=== PATIENT | male | born 1995 ===

== ENCOUNTER 2024-11-08 17:54 | Inpatient (IN) | payer MEDICAID, SELFPAY ==
[2024-11-08 18:24] VITALS: BMI 22.6
[2024-11-08 18:25] VITALS: BP 124/72; PULSE 76; RESP 18; TEMP 36.7; O2SAT 98
--- NOTE | 2024-11-08 18:26 | PC.NURSE ---
Pt was brought onto the unit via ems at 1804. Pt cooperative with skin check, skin intact. Pts VSS. Pt oriented to the unit. Pt requested and allowed to use the shower. Pt is safe and denies any SI/HI. Pt is calm and cooperative.
[2024-11-08 20:00] VITALS: BP 120/59; PULSE 78; RESP 18; TEMP 36.9; O2SAT 95
--- NOTE | 2024-11-08 23:23 | PC.ADMIT ---
Cristian is a 29 y/o Barbadian speaking male admitted at 18:04 from [facility] for the tx of major depression. Patient met with provider Shira upon arrival to unit and signed a CV. Pt is A&O X4. Cristian initially presented to [facility] with chest discomfort, feeling lightheaded, and a headache. He also endorsed SI due to recent stressors. Pt lives alone in an apartment and works at [employer] for the past 6 years. 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 He reported that a few days ago he had to go to court and that it didn't go well. He was served a restraining order for a year, and was banned from going to the fire station in [facility]. He reported that he felt overwhelmed as he had just accomplished his dream job and he had so much anxiety that he began having chest pain stating he would jump out of a window. Patient reports a history of an enlarged heart and does not take any at home medications. While at [facility] he had a complete cardiac work up with findings WNL. He reports smoking a few cigarettes a day and denies use of alcohol or any other substances. Utox +THC. Pt was calm and cooperative. His mood is anxious and depressed with a flat affect. Pt remained with positive eye contact and answered all assessment questions calmly and appropriately. He is accepting of this admission and hopes to get better and learn more how to take care of himself to better himself. Pt denies any current SI, HI, AVH, pain or discomfort. Skin check was unremarkable. Pt placed on 15 minute safety checks.
[2024-11-09 07:00] VITALS: BMI 13.9
[2024-11-09 07:46] VITALS: BP 127/58; PULSE 95; RESP 20; TEMP 36.4; O2SAT 97
--- NOTE | 2024-11-09 08:32 | HO.PM.IMCN ---
History of Present Illness Data of Consult Service Date: 11/09/24 Primary Care Provider: None Physician HPI Reason for consult: Medical H&P 29-year-old male presented to [facility] chest discomfort and he endorsed suicidal ideation in the setting of recent stressors. He stated that he plans to jump out of a window. Regarding the chest pain, his EKG demonstrated normal sinus rhythm with no evidence of STEMI, his troponins were negative, BNP less than 2, CBC and CMP were unremarkable, his urine tox screen demonstrated THC, his chest x-ray was negative. ACS was ruled out. On exam he has no concerns, denies any shortness of breath, dizziness lightheadedness or any other concerning symptoms. He has no medical concerns. He reports that at age 15 he had a physical prior to playing tennis, was told he had a ?enlarged heart?. He has never seen a otologist or had any follow up since then. His blood pressure and pulse are stable no indication for any further workup. Review of Systems Review of Systems: Denies any shortness of breath, chest pain, dizziness, lightheadedness, abdominal pain or discomfort, nausea vomiting or diarrhea PMFSH Social History Household Members: None Housing: Apartment Do you presently have visiting nurse or other home services: No Patient Tobacco Use Status: Current everyday Tobacco user Tobacco use type: Cigarette Cigarettes Per Day: 3 Years Smoked: unknown Smoked in Last 30 Days: Yes e-Cigarette/Vaping Use: Never Used Patient Interested in Nicotine Replacement: Yes Patient Given Instructions on How to Stop Smoking: No (pt declined) Second Hand Smoke Exposure: No Currently Displaying Signs/Symptoms of Drug Intoxication Withdrawal: No Have you been hit, kicked, punched, or otherwise hurt by someone within the past year? If so, by whom?: No Do you feel safe in your current relationship?: No Current Relationship Is there a partner from a previous relationship who is making you feel unsafe now?: No Are you made to feel afraid or neglected: No Advance Directives: No Advance Directives Information Provided: Yes Do you have thoughts of harming others: None Do you have a plan to hurt others: No Plan Recently lost weight without trying: No How much weight loss: Not applicable Eating poorly because of decreased appetite: No Nutrition screen score: 0 service: No Sexual orientation: Lesbian/Ambriz/Homosexual Meds Allergies Allergy/AdvReac Type Severity Reaction Status Date / Time No Known Allergies Allergy Verified 11/08/24 18:33 Active Medications: Current Medications Acetaminophen (Acetaminophen 325 Mg Tablet) 650 mg PO Q6H PRN PRN Reason: Headache/Pain, Scale 1-10 Al Hydroxide/Mg Hydroxide (Magnesium Hydrox/Alum Hydrox 30 Ml Oral.Susp) 30 ml PO Q6H PRN PRN Reason: Heartburn/Nausea Hydroxyzine HCl (Hydroxyzine Hcl 25 Mg Tablet) 25 mg PO Q6H PRN PRN Reason: mild anxiety Magnesium Hydroxide (Milk Of Magnesia 30 Ml Oral.Susp) 30 ml PO DAILY PRN PRN Reason: Constipation Nicotine (Nicotine 21 Mg Patch.Td24) 21 mg TRANSDERMA DAILY PRN PRN Reason: nicotine craving Nicotine Polacrilex (Nicotine Polacrilex 2 Mg Gum) 2 mg BUCCAL Q2H PRN PRN Reason: Nicotine Cravings Trazodone HCl (Trazodone Hcl 50 Mg Tablet) 50 mg PO BEDTIME MRX1 PRN PRN Reason: Insomnia Home Medications ?Medication ?Instructions ?Recorded ?Confirmed ?Last Taken ?Type No Known Home Meds 11/08/24 11/08/24 Unknown History Physical Exam Vital Signs and Narrative: Vital Signs: Last Vital Signs Temp 97.6 F 11/09/24 07:46 Pulse 95 11/09/24 07:46 Resp 20 11/09/24 07:46 BP 127/58 L 11/09/24 07:46 Pulse Ox 97 11/09/24 07:46 O2 Del Method Room Air 11/09/24 07:46 BMI result Body Mass Index 22.6 Alert and oriented X3, able to give good history. Neuro: CN II-X11 intact, no deficits, visual acuity intact EYES: PERRLA, EOM intact ENT: Hearing intact, lips moist, nares patent no epistaxis Cardiac: S1 S2 RRR, No ectopy Pulmonary: lungs clear to auscultation, No increased WOB. Abdominal: BS active in all 4 quadrants, no guarding or tenderness MSK: Strength 5/5 upper and lower extremities : Deferred Extremities: No edema in lower extremities Psych: mood stable, Quiet and cooperative. Skin: Warm and dry, Intact Assessment and Plan (1) Major depressive disorder: Status: Acute Plan Major depressive disorder/suicidal ideation Treatment per psychiatry team Thank you for allowing me to participate in the care of this patient. Signing off at this time. Please reconsult of any acute concerns or issues arise
--- NOTE | 2024-11-09 08:38 | P.HPPS_ITS ---
HPI Date of Service: 11/09/24 Chief Complaint: Major depression, severe Sources of Information: patient interviewed, chart reviewed and crisis/core team assessment reviewed HPI Subjective Notes: Gonzalez Warning, Conditional Voluntary and 3 Day Narrative: Patient is a 29-year-old male with no prior psychiatric history who presented to ER due to chest discomfort and lightheadedness, endorsing suicidal ideation secondary to increased life stressors. Per crisis report, patient reports history of anxiety. Patient reports a few days ago he had court for a restraining order and last night was feeling bad, which lead to him thinking about jumping out the window. Patient reports he knows the individual who is filing the restraining order on him from high school. The individuals grandmother recently and the pt was driving down the street and saw the individual sitting on his porch. He reports stopping and shaking his hand and giving his condolences. He reported, this person stated he was harassing him. 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 The patient reports he recently passed his exam and was going to go to the [employer] . Denies any history of depression. Denies history of past inpatient psychiatric hospitalizations. Denies history of SA/SIB. Denies HI/VH/AH. Patient does not have outpatient psychiatric providers and is not taking any psychiatric medications. During admission assessment, patient presents alert and oriented x3. Calm and cooperative. Patient reports feeling fine ; patient stated, I was feeling stressed out because of the situation. I was upset that he got a restraining order on me and I can't go to the fire station for a year. This is the 2nd time he has gotten a restraining order. I was in love with this shrink pit operator. He's straight and I'm not. I would text him telling him to take care of himself, but nothing threatening. When I gave my condolences about his grandmother, I was being sincere . Patient reports he knew this individual's grandmother due to finding out from social media. He denies SI/HI/VH/AH. Patient reports he has no desire to . Denies history of substance use. Utox positive for marijuana. Patient reports he is not interested in taking psychiatric medications. However, he would like a referral to a therapist; dialysis social worker aware. Patient signed 3 day notice, he is requesting to be discharged d/t not needing to be in the hospital . Past Psychiatric History: Denies history of past inpatient psychiatric hospitalizations. Denies history of SA/SIB. Patient does not have outpatient psychiatric providers and is not taking any psychiatric medications. Medical Evaluation Reviewed: Yes PMFSH Family History: denies Social History: Lives alone. single. no kids. 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 Substance History: U tox positive for marijuana. Denies any other substance use. Trauma History: yes Diagnostics Vital Signs (24Hr): Vital Signs - 24 hr 11/08/24 18:25 11/08/24 20:00 11/09/24 07:46 Temperature 98.0 F 98.5 F 97.6 F Pulse Rate 76 78 95 Respiratory Rate 18 18 20 Blood Pressure 124/72 120/59 L 127/58 L Pulse Oximetry 98 95 97 Oxygen Delivery Method Room Air Room Air Room Air BMI result Body Mass Index 22.6 Meds/Allergies Meds Home Medications ?Medication ?Instructions ?Recorded ?Confirmed ?Type No Known Home Meds 11/08/24 11/08/24 Hi story Allergies Allergies Allergy/AdvReac Type Severity Reaction Status Date / Time No Known Allergies Allergy Verified 11/08/24 18:33 Mental Status Exam Mental Status Exam Narrative: Pt is alert and oriented; behavior is cooperative, friendly and calm; dressed in casual attire; mood is described as fine ; eye contact appropriate; Speech is normal rate, volume and not pressured; thought process is organized; Thought content is on discharge; denies SI/HI/VH/AH. Assessment & Plan Assessment & Plan (1) Adjustment disorder: Status: Acute Code(s): F43.20 - Adjustment disorder, unspecified Plan Patient is a 29-year-old male with no prior psychiatric history who presented to ER due to chest discomfort and lightheadedness, endorsing suicidal ideation secondary to increased life stressors. Plan: CV 15 minute safety checks Obtain collateral referral to outpatient therapist encourage groups discharge planning Patient educated on: diagnosis, medication risk/benefits and therapeutic strategies Reason for continued inpatient stay Substantial Risk for: med/psych decompensation Statement Statement: I have reviewed the history and physical and performed a pertinent examination on my patient. No changes have occurred unless specified. If the History and Physical was not performed prior to admission, the Hospitalist's service will be consulted for completing the admission physical. Time Spent With Patient Time: Total time managing care of this patient today _60___ minutes.
[2024-11-09 20:00] VITALS: BP 119/74; PULSE 80; RESP 16; TEMP 36.7; O2SAT 98
[2024-11-10 07:44] VITALS: BP 110/68; PULSE 75; RESP 16; TEMP 36.5; O2SAT 98
[2024-11-10 09:14] LABS: Hemoglobin A1C 123.3907 umol/L; Total Hemoglobin (HGBA1C) 3994.2521 umol/L
[2024-11-10 09:27] LABS: Alanine Aminotransferase 40 U/L (0-40); Albumin Level 4.5 g/dL (3.5-5.0); Alkaline Phosphatase 119 U/L (39-117); Anion Gap 12 (12-20); Aspartate Amino Transferase 27 U/L (5-37); Blood Urea Nitrogen 12 mg/dL (9-16); Calcium 8.6 mg/dL (8.4-10.2); Carbon Dioxide 27 mmol/L (22-29); Chloride 105 mmol/L (96-108); Cholesterol 160 mg/dL (<200); Creatinine Clr Calc Pharmacy 83.7; Estimated Glomerular Filt Rate > 60; HDL Cholesterol 35 mg/dL (>40); Potassium 4.0 mmol/L (3.3-5.1); Sodium 140 mmol/L (135-145); Total Protein 6.9 g/dL (6.5-8.0); Triglycerides 246 mg/dL (<150)
[2024-11-10 09:45] LABS: Free T4 (Free Thyroxine) 0.81 ng/dL (0.71-1.85); Thyroid Stimulating Hormone 1.37 uIU/mL (0.32-4.0)
--- NOTE | 2024-11-10 10:03 | P.DS_ITS ---
DS: Providers Provider Date of Service: 11/10/24 Date of admission: 11/08/24 17:54 Date of discharge: 11/10/24 Primary care physician: Bouchra Physician Admitting clinician: Constance Miller Attending physician on admission: Aaron Arango Consults: 11/08/24 18:40 Consult to Hospitalist Routine Comment: Consulting Provider: [facility] Hospitalists Reason For Exam: New external admit- H&P Attending physician on discharge: Aaron Arango Discharging clinician: Constance Miller DS: Diagnosis Discharge Diagnosis (1) Adjustment disorder: Status: Acute DS: Medications Discharge Medications Home Medications: Home Medications ?Medication ?Instructions ?Recorded ?Confirmed No Known Home Meds 11/08/24 11/08/24 Mental Status Exam Mental Status Exam Narrative: Pt is alert and oriented; behavior is cooperative, friendly and calm; dressed in casual attire; mood is described as good ; eye contact appropriate; Speech is normal rate, volume and not pressured; thought process is organized; Thought content is on discharge; denies SI/HI/VH/AH. Data Data Completed and Pending Completed studies during hospitalization [Text1]: 11/10/24 08:32 Sodium 140 Potassium 4.0 Chloride 105 Carbon Dioxide 27 Anion Gap 12 BUN 12 Creatinine 0.87 Estim Creat Clear Calc 83.7 Estimated GFR > 60 Random Glucose 151 H Estimat Average Glucose 97 Hemoglobin A1c % 5.0 Calcium 8.6 Total Bilirubin 0.4 AST 27 ALT 40 Alkaline Phosphatase 119 H Total Protein 6.9 Albumin 4.5 Triglycerides 246 H Cholesterol 160 LDL Cholesterol, Calc 76 HDL Cholesterol 35 L TSH 1.37 Free T4 0.81 DS: Summary Hospital Course Hospital Course: Patient is a 29-year-old male with no prior psychiatric history who presented to ER due to chest discomfort and lightheadedness, endorsing suicidal ideation secondary to increased life stressors. Per crisis report, patient reports history of anxiety. Patient reports a few days ago he had court for a restraining order and last night was feeling bad, which lead to him thinking about jumping out the window. Patient reports he knows the individual who is filing the restraining order on him from high school. The individuals grandmother recently and the pt was driving down the street and saw the individual sitting on his porch. He reports stopping and shaking his hand and giving his condolences. He reported, this person stated he was harassing him. 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 The patient reports he recently passed his exam and was going to go to the [employer] . Denies any history of depression. Denies history of past inpatient psychiatric hospitalizations. Denies history of SA/SIB. Denies HI/VH/AH. Patient does not have outpatient psychiatric providers and is not taking any psychiatric medications. During admission assessment, patient presents alert and oriented x3. Calm and cooperative. Patient reports feeling fine ; patient stated, I was feeling stressed out because of the situation. I was upset that he got a restraining order on me and I can't go to the fire station for a year. This is the 2nd time he has gotten a restraining order. I was in love with this customs entry clerk. He's straight and I'm not. I would text him telling him to take care of himself, but nothing threatening. When I gave my condolences about his grandmother, I was being sincere . Patient reports he knew this individual's grandmother due to finding out from social media. He denies SI/HI/VH/AH. Patient reports he has no desire to . Denies history of substance use. Utox positive for marijuana. Patient reports he is not interested in taking psychiatric medications. However, he would like a referral to a therapist; social welfare administrator aware. Patient signed 3 day notice, he is requesting to be d ischarged d/t not needing to be in the hospital . Plan: CV 15 minute safety checks Obtain collateral referral to outpatient therapist encourage groups discharge planning Patient continues to report feeling good today; he is requesting to be discharged home. Patient reports he plans on following up with outpatient therapist. Patient stated, I'm not going to go near the customs entry clerk. 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 Future oriented. denies SI/HI/VH/AH. Status at Discharge Cognitive/behavioral status at discharge: Patient has insight and demonstrates good judgment in terms of wanting to pursue treatment. Patient has a safety plan that includes presenting to the closest ER or calling 911 if feeling unsafe. Functional status at discharge: independent ambulation Overall status at discharge: patient is back to baseline Time Spent with Patient Time attestation: Total time managing care of this patient today _20___ minutes. Time spent: Less than 30 minutes Discharge Plan Discharge Anticipated Discharge Date/Time: 11/10/24 11:00 Patient Disposition: Home, Self-Care Discharge Diagnosis: Adjustment d/o Referrals: THERAPY [Other] - 1 Week [facility] [Provider Group] - 1 Week Referral Note: 11-09-24 [facility] was added to patients chart. Please call [phone] to schedule your follow up appt within 7-10 days of discharge. No release or PCP on file. Discharge Medications: No Action No Known Home Meds Discharge Orders: Discharge Order (Routine); Ordered 11/10/24 Ordered By: Constance Miller Diet: Regular diet Activity on Discharge: As tolerated Stand Alone Forms: Patient Portal Discharge page, Community Support Print Language: Armenian Care Plan Goals: Maintain mood and safe behaviors Take medications as prescribed Practice coping skills Continue with outpatient providers and reach out to them as needed Health Concerns: Mood stability and behaviors Plan of Treatment: Follow up with your PCP, psychiatric provider and other outpatient providers regarding above concerns Take medications as prescribed Assessment: Patient has insight and demonstrates good judgment in terms of wanting to pursue treatment. Patient has a safety plan that includes presenting to the closest ER or calling 911 if feeling unsafe. Discharge Date/Time: 11/10/24 10:34
== END 2024-11-10 10:34 | disposition home or self-care (01) | DRG 755 ==
PROVIDERS: Nurse Practitioner Psychiatric/Mental Health; Admitting Provider Psychiatry & Neurology Psychiatry; Responsible Provider Registered Nurse; Visit Provider Psychiatry & Neurology Psychiatry
DX: F43.20 Adjustment disorder, unspecified (principal); R45.851 Suicidal ideations; F17.210 Nicotine dependence, cigarettes, uncomplicated; Z71.6 Tobacco abuse counseling
CPT/HCPCS: 36415; 80053; 80061; 83036; 84439; 84443

== ENCOUNTER → 2024-11-08 17:54 | Outpatient (BNV) | payer OTHER, SELFPAY | PROVIDERS: Admitting Provider Psychiatry & Neurology Psychiatry; Responsible Provider Registered Nurse; Visit Provider Registered Nurse | DX: F43.20 Adjustment disorder, unspecified (principal) | CPT/HCPCS: 99231; 99233 ==

== ENCOUNTER → 2024-11-08 17:54 | Outpatient (BNV) | payer SELFPAY | PROVIDERS: Admitting Provider Psychiatry & Neurology Psychiatry; Responsible Provider Registered Nurse; Visit Provider Nurse Practitioner Family | DX: R07.89 Other chest pain (principal); F32.9 Major depressive disorder, single episode, unspecified | CPT/HCPCS: 99221 ==